=== PATIENT | female | born 1985 ===

== ENCOUNTER 2016-07-05 18:24 | Emergency (ER) | payer MEDICAID ==
[~2016-07-05] VITALS: Ht 152.4 cm; Wt 75.0 kg
[2016-07-05 18:27] VITALS: BP 120/66; PULSE 82; RESP 16; TEMP 97.9; O2SAT 100
--- NOTE | 2016-07-05 18:51 | PD ---
HPI Chief Complaint: Lump, Cyst, Hernia Time Seen by Provider: 18:45 Travel History International Travel<30 days: No Contact w/Intl Traveler<30days: No Traveled to known affect area: No History of Present Illness HPI 31-year-old female presents to the emergency Department with complaint of a lump to the back of her head for approximately 2 years. A week ago she leaned back in a chair and aggravated it and [facility] and was told to take ibuprofen and Tylenol as needed for pain and to follow up outpatient. The patient presents today for a second opinion and requesting a CT scan of her head. Denies traumatic injury. Denies nausea, vomiting. Denies fever, chills. Lump is tender to touch. She has tried taking [id number] medications with no relief of symptoms. Denies significant past medical history. No known allergies. Dr. Mena is primary care provider. No other modifying factors or associated signs and symptoms. History Past Medical Histgory Medical History: Denies Significant Hx Past Surgical History Surgical History: No Previous Surgery Social History Alcohol Use: No Tobacco Use: No Allergies-Medications (Allergen,Severity, Reaction): Coded Allergies: No Known Allergies (Unverified , 07/05/16) Reported Meds & Prescriptions Reported Meds & Active Scripts Active No Active Prescriptions or Reported Medications Review of Systems Except as stated in HPI: all other systems reviewed are Neg Physical Exam Narrative GENERAL: Well-nourished, well-developed female patient, in no acute distress; afebrile, nontoxic-appearing SKIN: Warm and dry. Posterior scalp, to the occipital area, with a palpable lump approximately 2 cm in diameter; it is soft and tender to touch; without erythema, drainage, pointing; no cellulitic process or signs of infection. HEAD: Atraumatic. Normocephalic. EYES: Pupils equal and round. No scleral icterus. No injection or drainage. ENT: Mucosa pink and moist. Airway patent. NECK: Trachea midline. No lymphadenopathy. CARDIOVASCULAR: Regular rate. RESPIRATORY: No accessory muscle use. GASTROINTESTINAL: Rounded. MUSCULOSKELETAL: No obvious deformities. No clubbing. No cyanosis. No edema. NEUROLOGICAL: Awake and alert. Oriented 3. No obvious cranial nerve deficits. Motor grossly within normal limits. Normal speech. PSYCHIATRIC: Appropriate mood and affect; insight and judgment normal. Data Data Last Documented VS Vital Signs Date Time Temp Pulse Resp B/P Pulse Ox O2 Delivery O2 Flow Rate FiO2 07/05/16 18:27 97.9 82 16 120/66 100 Room Air MDM Medical Screen Exam Complete: Yes Emergency Medical Condition: No Differential Diagnosis Cyst, tumor, less likely abscess Narrative Course 31-year-old female with approximately 2 cm diameter soft, tender, palpable lump to the occipital area of the posterior scalp that has been present for 2 years. The area is without signs of infection. Patient is afebrile. She denies fever, chills, nausea or vomiting. Dr. Mena is her primary care provider. She has not followed up in regards to this complaint. I offered the patient a nonnarcotic for pain and she declined at this time. Vital signs are stable and the patient is stable for outpatient follow-up and treatment. The patient has no urgent or emergent medical complaints. There is no emergent or urgent medical need at this time. I instructed the patient to follow up with their primary care provider. A medical screening exam was performed: At the time of evaluation the presenting medical condition was determined not to be of an emergent nature. The patient was given the option of receiving additional care, but declined. Patient was given options for additional community resources from which to obtain care. The Patient Has Been advised to seek medical attention for their presenting complaint. The patient has been advised to return to the ER at any time if an emergent condition develops. Primary Impression: Encounter for medical screening examination Scripts No Active Prescriptions or Reported Meds Condition: Stable Dulce Maria Cárdenas Jul 05, 2016 18:51
== END 2016-07-05 19:03 | disposition left against medical advice (07) ==
LOC: NEPB 18:24
DX: R22.0 Localized swelling, mass and lump, head (principal)
CPT/HCPCS: 99281